=== PATIENT | male | born 1975 | race African-American/Black ===

== ENCOUNTER 2025-01-14 20:45 | Emergency (ER) | payer OTHER ==
[~2025-01-14] VITALS: Ht 170.2 cm; Wt 68.0 kg
[2025-01-14 20:47] VITALS: O2SAT 100
[2025-01-14] MEDS: DOXYCYCLINE HYCLATE 100MG CAPSULE PO ONE (22:00)
[2025-01-14] MEDS ORDERED: MORPHINE SULFATE 4 MG/ML INJ (FOR IV/IM USE) IV ONE (22:00)
[2025-01-14 22:43] LABS: BASOPHILS % 0.9 % (0.0-2.0); DIFFERENTIAL COMMENT 0; EOSINOPHILS % 1.7 % (0.0-5.0); HEMATOCRIT. 45.3 % (42.0-52.0); HEMOGLOBIN. 14.5 g/dL (14.0-18.0); MEAN CORPUSCULAR HEMOGLOBIN 29.2 pg (28.0-32.0); MEAN CORPUSCULAR VOLUME 91.2 fL (80.0-94.0); MEAN PLATELET VOLUME 9.1 fl (7.4-10.4); MONOCYTES % 13.4 % (2.0-8.0); PLATELET 284 x1000/uL (130-400); RED BLOOD CELL COUNT 4.97 mill/uL (4.7-6.1); RED CELL DISTRIBUTION WIDTH 18.8 % (11.6-14.6); WHITE BLOOD COUNT 7.3 x1000/uL (4.5-11.0)
[2025-01-14 22:50] LABS: CALCIUM 8.8 mg/dL (8.7-10.4); CARBON DIOXIDE 26 mEq/L (21-32); CHLORIDE 97 mEq/L (98-107); POTASSIUM 4.3 mEq/L (3.5-5.1); SODIUM 132 mEq/L (136-145)
[2025-01-14 22:55] LABS: CREATININE 1.2 mg/dL (0.6-1.3); GLUCOSE 92 mg/dL (70-105)
[2025-01-14 22:56] LABS: UREA NITROGEN BLOOD 20 mg/dL (9-23)
[2025-01-14 22:57] LABS: ALANINE AMINOTRANSFERASE 31 IU/L (10-49); ALBUMIN 3.6 g/dL (3.2-4.8); ASPARTATE AMINOTRANSFERASE 42 IU/L (<34)
[2025-01-14 22:58] LABS: BILIRUBIN TOTAL 1.1 mg/dL (0.1-1.0); PROTEIN TOTAL 7.9 g/dL (6.0-8.3)
[2025-01-14] MEDS: CEFTRIAXONE 1GM/50ML 50 ML IV SCH (23:57)
[2025-01-14] MEDS: SODIUM CHLORIDE 0.9% 2,040 ML IV ONE (23:58)
[2025-01-15] MEDS: DOXYCYCLINE HYCLATE 100MG CAPSULE PO SCH (00:30)
[2025-01-15] MEDS: MORPHINE SULFATE 4 MG/ML INJ (FOR IV/IM USE) IV NR (00:52)
[2025-01-15] MEDS ORDERED: HYDR-459 MT (02:12)
[2025-01-15 04:44] VITALS: BP 98/61; PULSE 70; RESP 16; TEMP 36.9; O2SAT 100
== END 2025-01-15 04:45 | disposition home or self-care (01) ==
LOC: ER 20:45
DX: S80.822A Blister (nonthermal), left lower leg, initial encounter (principal); I11.0 Hypertensive heart disease with heart failure; I50.9 Heart failure, unspecified; X58.XXXA Exposure to other specified factors, initial encounter; Y93.89 Activity, other specified; Y92.89 Other specified places as the place of occurrence of the external cause; Y99.8 Other external cause status
CPT/HCPCS: 80053; 83605; 85025; 36415; 96374; 99285; 96375; J0696; J2270; Z7610